=== PATIENT | male | born 1950 | race Caucasian/White ===

== ENCOUNTER 2025-04-27 15:23 | Inpatient (IN) | payer MEDICAID ==
[~2025-04-27] VITALS: Ht 165.1 cm; Wt 74.4 kg
[2025-04-27 15:24] VITALS: O2SAT 99
[2025-04-27 16:26] LABS: BASOPHILS % 1.2 % (0.0-2.0); EOSINOPHILS % 2.6 % (0.0-5.0); HEMATOCRIT. 43.5 % (42.0-52.0); HEMOGLOBIN. 14.3 g/dL (14.0-18.0); LYMPHOCYTES % 24.8 % (20.0-50.0); MEAN PLATELET VOLUME 9.1 fl (7.4-10.4); MONOCYTES % 8.1 % (2.0-8.0); NEUTROPHILS % 63.3 % (40.0-76.0); PLATELET 222 x1000/uL (130-400); RED BLOOD CELL COUNT 4.95 mill/uL (4.7-6.1); RED CELL DISTRIBUTION WIDTH 13.7 % (11.6-14.6)
[2025-04-27 16:41] LABS: CREATININE 0.9 mg/dL (0.6-1.3); UREA NITROGEN BLOOD 13 mg/dL (9-23)
[2025-04-27 16:43] LABS: ASPARTATE AMINOTRANSFERASE 22 IU/L (<34); TROPONIN I HIGH SENSITIVITY < 4 ng/L (3.0-53)
[2025-04-27 16:44] LABS: BILIRUBIN DIRECT 0.3 mg/dL (<=3.0); BILIRUBIN TOTAL 1.1 mg/dL (0.1-1.0); PROTEIN TOTAL 6.5 g/dL (6.0-8.3)
[2025-04-27 19:14] LABS: CLARITY URINE CLEAR (CLEAR); COLOR URINE YELLOW (YELLOW); GLUCOSE URINE NEGATIVE (NEGATIVE); KETONES URINE NEGATIVE (NEGATIVE); LEUKOCYTE ESTERASE URINE NEGATIVE (NEGATIVE); NITRITE URINE NEGATIVE (NEGATIVE); OCCULT BLOOD URINE NEGATIVE (NEGATIVE); PH URINE 7.5 (4.5-8.0); PROTEIN URINE NEGATIVE (NEGATIVE); SPECIFIC GRAVITY URINE 1.048 (1.005-1.030); UROBILINOGEN URINE 0.2 E.U./dL (0.2-1.0)
[2025-04-27] MEDS: MORPHINE SULFATE 4 MG/ML INJ (FOR IV/IM USE) IV ONE (19:14)
[2025-04-27] MEDS ORDERED: ACETAMINOPHEN 325MG TABLET PO PRN ×2 (20:15)
[2025-04-27] MEDS ORDERED: MAGNESIUM/ALUMINUM HYDROXIDE/SIMETHICONE 30ML UDC PO PRN (20:15)
[2025-04-27] MEDS ORDERED: GUAIFENESIN 200MG/10ML SUGAR FREE UDC PO PRN (20:15)
[2025-04-27] MEDS ORDERED: ONDANSETRON HCL 4MG/2ML INJ IV PRN (20:15)
[2025-04-27] MEDS ORDERED: DIPHENHYDRAMINE 50MG/ML VIAL IV PRN (20:15)
[2025-04-27] MEDS ORDERED: ZOLPIDEM TARTRATE 5MG TABLET PO PRN (20:15)
[2025-04-27] MEDS: FAMOTIDINE 20MG TABLET PO SCH (22:17)
[2025-04-27] MEDS: MORPHINE SULFATE 2 MG/ML INJ (NOT FOR IM USE) IV PRN (22:19)
[2025-04-27] MEDS: CLONIDINE 0.1MG TABLET PO PRN (22:19)
[2025-04-27] MEDS: SODIUM CHLORIDE 0.9% 3ML FLUSH IVF SCH (22:20)
[2025-04-27] MEDS ORDERED: IOHEXOL-350 100 ML BOTTLE ONE (23:13)
[2025-04-28] VITALS: BP 162/72; PULSE 67; RESP 18; TEMP 36.418
[2025-04-28 08:00] VITALS: BP 167/69; PULSE 57; RESP 19; TEMP 36.1; O2SAT 98
[2025-04-28] MEDS: ENOXAPARIN 40MG/0.4ML SYR SUBCUT SCH (08:29)
[2025-04-28 12:00] VITALS: BP 120/72; PULSE 55; RESP 17; TEMP 36.8; O2SAT 98
[2025-04-28] MEDS: HYDROCODONE/ACETAMINOPHEN 10/325MG TABLET PO PRN (13:59)
[2025-04-28 16:00] VITALS: BP 144/66; PULSE 58; RESP 16; TEMP 36.7; O2SAT 98
[2025-04-28] MEDS ORDERED: KETOROLAC 15MG/ML VIAL IV PRN (19:30)
[2025-04-28 20:00] VITALS: BP 148/67; PULSE 64; RESP 16; TEMP 36.5; O2SAT 99
[2025-04-28 22:00] VITALS: BP 176/85; PULSE 61; RESP 16; TEMP 36.6; O2SAT 99
[2025-04-28] MEDS ORDERED: NALOXONE HCL 0.4MG/ML VIAL IV PRN (23:00)
[2025-04-28] MEDS: HYDROCODONE/ACETAMINOPHEN 5/325MG TABLET PO SCH (23:00)
[2025-04-29] VITALS: BP 136/82; PULSE 62; RESP 14; TEMP 36.5; O2SAT 98
[2025-04-29 04:00] VITALS: BP 159/69; PULSE 59; RESP 16; TEMP 36.6; O2SAT 97
[2025-04-29 08:00] VITALS: BP 120/66; PULSE 84; RESP 15; TEMP 33.9; O2SAT 96
[2025-04-29] MEDS ORDERED: AMLODIPINE 2.5MG TABLET PO SCH (09:00)
[2025-04-29] MEDS: LISINOPRIL 10MG TABLET PO SCH (09:52)
[2025-04-29] MEDS ORDERED: IBUP-1455 PO (09:58)
[2025-04-29 12:00] VITALS: BP 156/68; PULSE 81; RESP 18; TEMP 36.2; O2SAT 97
[2025-04-29] MEDS: IBUPROFEN 600MG TABLET PO PRN (14:37)
[2025-04-29 16:00] VITALS: BP 147/63; PULSE 91; RESP 18; TEMP 35.7; O2SAT 98
[2025-04-29 20:00] VITALS: BP 168/68; PULSE 68; RESP 18; TEMP 35.9; O2SAT 97
[2025-04-30] VITALS: BP 135/62; PULSE 61; RESP 18; TEMP 36.4; O2SAT 95
[2025-04-30 04:00] VITALS: BP 143/66; PULSE 57; RESP 18; TEMP 36.1; O2SAT 97
[2025-04-30 08:00] VITALS: BP 148/70; PULSE 112; RESP 18; TEMP 35.4; O2SAT 98
[2025-04-30 14:37] VITALS: BP 135/66; PULSE 110; RESP 18; TEMP 98.2
== END 2025-04-30 15:25 | disposition home or self-care (01) | DRG 395 ==
LOC: ER 15:23 → 7EST 19:24 → EDBEDREQ 19:27 → EDBEDREQTM 19:27 → ENRESERV 20:07
PROVIDERS: ADMIT Internal Medicine; ATTEND Internal Medicine
DX: K40.90 Unilateral inguinal hernia, without obstruction or gangrene, not specified as recurrent (principal); I10 Essential (primary) hypertension; I25.10 Atherosclerotic heart disease of native coronary artery without angina pectoris; N40.0 Benign prostatic hyperplasia without lower urinary tract symptoms; Z79.899 Other long term (current) drug therapy
CPT/HCPCS: 36415; 71275; 74174; 80048; 80076; 81003; 83735; 84484; 85025; 93005; 96374; 99291; J1650; J2270; Q9967